=== PATIENT | female | born 1960 | race African-American/Black ===

== ENCOUNTER 2019-04-11 00:47 | Emergency (ER) | payer SELFPAY ==
[2019-04-11] MEDS ORDERED: Cyclobenzaprine 10 MG TAB ONE (01:17)
[2019-04-11 01:31] LABS: #Basophils 0.1 thou/uL (0.0-0.2); #Eosinphils 0.2 thou/uL (0.0-0.7); #Lymphocytes 2.2 thou/uL (1.20-3.40); #Monocytes 0.6 thou/uL (0.11-0.59); #Neutrophils 6.4 thou/uL (1.40-6.50); %Basophils 0.6 % (0.0-1.0); %Eosinophils 1.7 % (0.0-10.0); %Lymphocytes 23.1 % (21.0-51.0); %Monocytes 6.5 % (0.0-10.0); %Neutrophils 68.1 % (42.0-75.0); Hemoglobin 12.2 g/dL (12.0-16.0); Mean Corpuscular HGB CONC 31.5 g/dL (32.0-36.0); Mean Corpuscular Hemoglobin 29.6 pg (27.0-31.0); Mean Corpuscular Volume 93.9 fL (78.0-98.0); Mean Platelet Volume 8.2 fL (7.4-10.4); Platelet Count 268 thou/uL (130-400); RBC Distribution Width 11.9 % (11.5-14.5); Red Blood Cell (RBC) Count 4.12 mill/uL (4.20-5.40); White Blood Cell (WBC) Count 9.4 thou/uL (4.8-10.8)
[2019-04-11 01:55] LABS: ALT (SGPT) 43 U/L (8-55); AST (SGOT) 24 U/L (5-34); Albumin 4.1 g/dL (3.5-5.0); Alkaline Phosphatase 75 U/L (40-150); Anion Gap 15 mmol/L (10-20); BUN (Urea Nitrogen) 16 mg/dL (9.8-20.1); Bilirubin, Total 0.4 mg/dL (0.2-1.2); Calc. Creatinine Clearance 0 mL/min (70-130); Calcium 9.6 mg/dL (7.8-10.44); Carbon Dioxide 25 mmol/L (22-29); Chloride 102 mmol/L (98-107); Estimated GFR-MDRD 70; Globulin 3.3 g/dL (2.4-3.5); Glucose 146 mg/dL (70-105); Lipase 75 U/L (8-78); Potassium 3.5 mmol/L (3.5-5.1); Protein, Total 7.4 g/dL (6.0-8.3); Sodium 138 mmol/L (136-145)
--- NOTE | 2019-04-11 07:32 | RAD ---
Portable frontal chest radiograph: 04/11/2019 COMPARISON: None HISTORY: Pain and weakness FINDINGS: Lungs are clear. Heart and mediastinal contours appear within normal limits. IMPRESSION: No acute findings.
--- NOTE | 2019-04-11 07:37 | CT ---
PRELIMINARY REPORT: CT Cervical Spine Without Contrast EXAM DATE/TIME: 04/11/2019 1:41 AM CLINICAL HISTORY: 58 years old, female; Neck pain; Patient HX: 58 year old female presents to the er with chief complaint of weakness and right arm pain that occurred after being at [employer]. Patient denies any injury to the area. Pain worse to the right side of the back and radiates to the n jennifer and then down to the right elbow. Patient denies any medications prior to arrival. TECHNIQUE: Imaging protocol: Axial computed tomography images of the cervical spine without contrast. Coronal and sagittal reformatted images were created and reviewed. COMPARISON: No relevant prior studies available. FINDINGS: Vertebrae: No acute fracture. Discs/Spinal canal/Neural foramina: C7-T1 degenerative disc disease. Mild multilevel bilateral facet and uncovertebral arthropathy. Degenerative changes of the atlantoaxial articulation. Soft tissues: Normal. Lungs: Lung apices are normal. IMPRESSION: No acute fracture. Thank you for allowing us to participate in the care of your patient. Dictated and Authenticated by: Tiburcio Arzate MD 04/11/2019 2:22 AM Central Time ([place] & [place]) FINAL REPORT CT CERVICAL SPINE WITH CORONAL AND SAGITTAL REFORMATIONS: I agree with the report given by Dr. Tiburcio Arzate. Transcribed Date/Time: 04/11/2019 7:50 AM
== END 2019-04-11 03:00 | disposition home or self-care (01) ==
LOC: ERS 00:47
DX: M50.33 Other cervical disc degeneration, cervicothoracic region (principal); R53.1 Weakness
CPT/HCPCS: 36415; 71045; 72125; 80053; 83690; 84484; 85025; 93005; 94760; 96360